=== PATIENT | female | born 1965 | race Caucasian/White ===

== ENCOUNTER 2025-07-29 09:39 | Emergency (ER) | payer BC | END 2025-07-29 09:49 | disposition home or self-care (01) | LOC: DL.ED 09:39 | DX: R23.3 Spontaneous ecchymoses (principal); J45.909 Unspecified asthma, uncomplicated; K21.9 Gastro-esophageal reflux disease without esophagitis; M19.90 Unspecified osteoarthritis, unspecified site; Z79.899 Other long term (current) drug therapy; Z88.8 Allergy status to other drugs, medicaments and biological substances; Z88.1 Allergy status to other antibiotic agents; Z88.6 Allergy status to analgesic agent; Z90.49 Acquired absence of other specified parts of digestive tract | CPT/HCPCS: 99282 ==